=== PATIENT | male | born 1990 | race Caucasian/White ===

== ENCOUNTER → 2017-11-22 | Outpatient (CLI) | payer BC ==
--- NOTE | 2017-11-23 05:26 | SPLIT NIGHT TECHNICIAN REPORT ---
[facility] Split Night Polysomnogram - Loading Dock Hand Report Study date: 11/22/2017 Referring Physician: Dr. Janette Pena M.D. Name: PAOLO VENEGAS Enedina Loading Dock Hand: THI Silver. Date of : 1990 Height: 27 years, Height 6' 0" Sex: Male Weight: 474 lbs Age: 27 Neck Circum: 21.5inches BMI: Medications: 64.28 None Listed Patient History Study started on room air with ETCO2 monitoring in room #8. 27 yr old male here tonight for a possible split psg if AHI>15 after 2 hours. He had 2 failed HST's. He complains of EDS and snoring. He has had weight gain in the past 2 years (130#'s). His ESS=16/24. Neck circ=21.5inches Parameters Monitored NPSG: E1-M2, E2-M1, Fp1-M2, Fp2-M1, F3-M2, F4-M2, F4-M1, C3-M2, C4-M2, C4-M1, O1-M2, O2-M2, O2-M1, T3-M2, T4-M1, P3-M2, P4-M1, CHIN1, CHIN2, HR, EKG, Legs, PFLOW, SNOR, FLOW, CFLOW, Tidal Volume, THOR, ABDO, SpO2, PLTH, CPRESS, ETCO2 Wave, ETCO2, pH SLEEP SUMMARY DATA DIAGNOSTIC TREATMENT Lights Out: 10:08:22 PM 12:21:22 AM Lights On: 12:08:52 AM 5:13:52 AM Total Recording Time (TRT): 120.5 min. 292.0 min. Total Sleep Time (TST): 82.0 min. 281.5 min. NREM Time: 77.5 min. 148.0 min. REM Time: 4.5 min. 133.5 min. Sleep Period Time (SPT): 84.5 min. 287.0 min. Sleep Efficiency (SE): 68 % 96 % Sleep Latency: 36.0 min. 5.5 min. Arousal Index: 7.3 4.0 PAP Treatment Levels: 4, 6, 8, 10, 12, 14, 16 * Optimal Pressure(s) SLEEP STAGING DATA DIAGNOSTIC TREATMENT Duration (min) TST % Duration (min) TST % Stage Wake: 38.5 min. -- 10.5 min. -- WASO: 2.5 min. -- 5.5 min. -- NREM: 77.5 min. 95 % 148.0 min. 53 % Stage N1: 8.0 min. 10 % 10.0 min. 4 % Stage N2: 26.0 min. 32 % 58.5 min. 21 % Stage N3: 43.5 min. 53 % 79.5 min. 28 % REM: 4.5 min. 5 % 133.5 min. 47 % POSITIONAL DATA Event Count Index Event Count Index Supine: 195 143 76 16.2 Supine NREM: 188 145.5 59 23.9 Supine REM: 7 93 17 8 Non-Supine: N/A N/A N/A N/A Non-Supine NREM: N/A N/A N/A N/A Non-Supine REM: N/A N/A N/A N/A AROUSAL SUMMARY DATA: Event Count Index Event Count Index Apnea Arousals: 1 13.9 8 3.8 Hypopnea Arousals: 6 4.4 5 1.1 Snore Arousals: 1 0.7 1 0.2 PLM Arousals: 0 0.0 0 0.0 Non-Specific Arousals: 0 0.0 2 0.4 Total Arousals: 10 7.3 19 4.0 MYOCLONUS (PLM) Event Count Index Event Count Index PLM: 0 0.0 0 0.0 PLM AROUSAL: 0 0.0 0 0.0 PLM W/O AROUSAL 0 0.0 0 0.0 PLM W/RESP EVENT 0 0.0 0 0.0 MYOCLONUS (PLM) Event Count Index Event Count Index LM: 1 9.5 12 2.6 LM AROUSAL: 1 0.7 4 0.9 LM W/O AROUSAL LM W/RESP EVENT LM NON SPECIFIC 6 4.4 5 1.1 HEART RATE DATA DIAGNOSTIC TREATMENT Sleep (bpm): 83 76 REM (bpm): 64 86 NREM (bpm): 79 86 Tachycardia Count: 0 0 Tachycardia Duration: 0.00 0 Bradycardia Count: 0 0 Bradycardia Duration: 0.00 0 DIAGNOSTIC PORTION TREATMENT PORTION RESPIRATORY DATA Event Count Index Event Count Index AHI: -- 142.7 -- 16.2 RDI: -- 142.7 -- 16 Obstructive Apnea: 19 13.9 17 3.6 Central Apnea: 0 0.0 1 0.2 Mixed Apnea: 0 0.0 0 0.0 Hypopnea: 176 128.8 58 12.4 RERA: 0 0.0 0 0.0 Total Apneas: 19 13.9 18 3.8 RESPIRATORY DATA REM NREM SLEEP REM NREM SLEEP Supine Position: Obstructive Apneas: 5 14 19 3 14 17 Central Apneas: 0 0 0 0 1 1 Mixed Apneas: 0 0 0 0 0 0 Hypopneas: 2 174 176 14 44 58 RERA 0 0 0 0 0 0 Total Supine Events: 7 188 195 17 59 76 Supine AHI: 93 145.5 143 8 23.9 16.2 Supine RDI: 93.3 145.5 142.7 7.6 23.9 16.2 REM NREM SLEEP REM NREM SLEEP Non-Supine Position: Obstructive Apneas: N/A N/A N/A N/A N/A N/A Central Apneas: N/A N/A N/A N/A N/A N/A Mixed Apneas: N/A N/A N/A N/A N/A N/A Hypopneas: N/A N/A N/A N/A N/A N/A RERA N/A N/A N/A N/A N/A N/A Total Supine Events: N/A N/A N/A N/A N/A N/A Supine AHI: N/A N/A N/A N/A N/A N/A Supine RDI: N/A N/A N/A N/A N/A N/A OXYGEN DESTAURATION DATA: Event Count Index Event Count Index REM Desaturations: 11 146.7 35 15.7 NREM Desaturations: 214 165.7 95 38.5 SNORE DATA DIAGNOSTIC TREATMENT Snore Time: 11.2 12:26:52 AM Snore TST%: 6 6 Snore Arousal Count: 1 1 Snore Arousal Index: 0.7 0.2 Desaturation Event Summary: Minimum %SpO2 Event Count Mean/Min/Max Duration(sec.) Desaturation Index % Time In Bed > 90 58 22.2 / 4.0 / 58.0 104.7 8.1 86 - 90 101 15.5 / 4.3 / 53.3 27.1 54.9 81 - 85 225 10.8 / 4.0 / 49.5 188.5 17.5 76 - 80 105 10.9 / 4.0 / 54.0 126.4 12.2 71 - 75 25 15.5 / 4.0 / 38.0 82.8 4.4 66 - 70 14 17.0 / 6.5 / 30.5 202.6 1.0 61 - 65 3 16.4 / 7.8 / 22.0 48.6 0.9 56 - 60 2 8.6 / 7.8 / 9.5 45.1 0.7 51 - 55 0 N/A 0.0 0.2 < 50 0 N/A 0.0 0.0 OXYGEN SATURATION DATA DIAGNOSTIC TREATMENT SpO2 Mean Sleep: 78 % 86 % SpO2 Mean REM: 64 % 86 % SpO2 Mean NREM: 79 % 86 % SpO2 Minimum Sleep: 52 % 65 % SpO2 Minimum REM: 54 % 65 % SpO2 Minimum NREM: 52 % 75 % Time Below 90% (TST): 79.4 240.2 Time Below 88% (TST): 76.8 138.7 Total REM NREM Awake <50% 0.0 min. 0.0 min. 0.0 min. 0.0 min. 51 - 60% 3.5 min. 1.6 min. 1.5 min. 0.4 min. 61 - 70% 7.8 min. 3.0 min. 4.8 min. 0.1 min. 71 - 80% 68.0 min. 9.9 min. 58.0 min. 0.1 min. 81 - 90% 295.6 min. 119.2 min. 150.8 min. 25.6 min. 91 - 100% 33.2 min. 4.2 min. 8.7 min. 20.4 min. Average 85 86 84 90 Minimum SpO2 52 54 52 57 Desaturation Event Index 56.1 20.0 82.2 39.2 # Desat. Events below 89% 368 45 305 18 Time(%) with Saturation below 89% 69.8 24.7 42.6 2.5 Time(min.) with Saturation below 89% 285.0 100.6 174.0 10.4 Recording Loading Dock Hand Comments: Mr. Venegas slept in the supine position with the head of his bed slightly elevated. No cardiac arrhythmia or PLM's noted. No bruxism noted. Snoring was noted and scored as a 5 on a scale of 1 through 5. (0=no snoring, 5=snoring loud enough to be heard through a closed door or down the nice way) At 12:21am he had met specific Split-Night criteria during the diagnostic portion of this study. CPAP was initiated at +4 CMH2O and up-titrated to a level of +16 CMH2O. A large Simplus full face mask by [employer] was used during titration. He did not use the restroom during the night. He stated that he slept fair. The final report will be interpreted and signed by a sleep physician. The completed physician report will then be placed in the patient medical record. Therapy Event: Therapy (cm H20) 0 4 6 8 10 12 14 16 Total Time at Pressure (min.) 120.5 13.6 9.0 14.6 17.2 9.4 49.1 178.9 TST at Pressure (min.) 82.0 4.1 9.0 14.6 17.2 9.4 49.1 177.9 # Periods 1 1 1 1 1 1 1 1 Sleep Onset (min.) 36.0 5.5 0.0 0.0 0.0 0.0 0.0 0.0 REM Onset (min.) 107.5 N/A N/A N/A N/A 0.0 0.0 0.0 Sleep Efficiency % 68 30 100 100 100 100 100 99 Wakefulness (%) 32.0 69.8 0.0 0.0 0.0 0.0 0.0 0.6 Wakefulness (min.) 38.5 9.5 0.0 0.0 0.0 0.0 0.0 1.0 NREM 1 (%) 6.6 29.4 38.7 0.0 0.0 0.0 0.0 1.4 NREM 1 (min.) 8.0 4.0 3.5 0.0 0.0 0.0 0.0 2.5 NREM 2 (%) 21.6 0.8 61.3 87.8 0.0 0.0 0.0 22.4 NREM 2 (min.) 26.0 0.1 5.5 12.8 0.0 0.0 0.0 40.0 NREM 3 (%) 36.1 0.0 0.0 12.2 100.0 0.2 0.0 33.8 NREM 3 (min.) 43.5 0.0 0.0 1.8 17.2 0.0 0.0 60.5 REM (%) 3.7 0.0 0.0 0.0 0.0 99.8 100.0 41.9 REM (min.) 4.5 0.0 0.0 0.0 0.0 9.4 49.1 74.9 # Arousals 10 2 10 0 0 0 1 6 Arousal Index 7.3 29.2 66.3 0.0 0.0 0.0 1.2 2.0 # Snore 682 2 90 435 227 12 145 33 Snore Index 499.0 29.2 596.8 1,784.2 791.8 76.3 177.0 11.1 AHI 142.7 131.6 165.8 61.5 31.4 25.4 14.7 0.7 AHI Supine 142.7 131.6 165.8 61.5 31.4 25.4 14.7 0.7 AHI Non-Supine N/A N/A N/A N/A N/A N/A N/A N/A NREM AHI 145.5 131.6 165.8 61.5 31.4 0.0 N/A 0.6 REM AHI 93.3 N/A N/A N/A N/A 25.5 14.7 0.8 RDI 142.7 131.6 165.8 61.5 31.4 25.4 14.7 0.7 # Obstructive 19 1 13 0 0 0 3 0 # Central Ap 0 1 0 0 0 0 0 0 # Mixed 0 0 0 0 0 0 0 0 # Hypopneas 176 7 12 15 9 4 9 2 RERAS 0 0 0 0 0 0 0 0 Total Respiratory Events 195 9 25 15 9 4 12 2 Time Below SpO2 89.00% (min.) 78.2 1.4 6.9 14.5 17.2 9.4 46.3 100.7 Mean NREM SpO2 (%) 79 89 85 80 80 76 N/A 88 Mean REM SpO2 (%) 64 N/A N/A N/A N/A 76 85 88 Mean Sleep SpO2 (%) 78 89 85 80 80 76 85 88 Min NREM SpO2 (%) 52 83 76 75 75 76 N/A 84 Min REM SpO2 (%) 54 N/A N/A N/A N/A 66 65 79 Position Supine (min.) 82.0 4.1 9.0 14.6 17.2 9.4 49.1 177.9 Position Non-supine (min.) 0.0 0.0 0.0 0.0 0.0 0.0 0.0 0.0 LM Index Sleep 9.5 43.9 13.3 0.0 0.0 6.4 1.2 1.7 LM Index NREM 9.3 43.9 13.3 0.0 0.0 0.0 N/A 1.7 LM Index REM 13.3 N/A N/A N/A N/A 6.4 1.2 1.6 Mean Heart Rate (bpm) 83 84 78 89 88 92 77 73 Min Heart Rate (bpm) 60 73 65 68 72 64 59 50
== END | disposition home or self-care (01) ==
LOC: C.NEUR 20:00
PROVIDERS: ATTEND Internal Medicine
DX: G47.33 Obstructive sleep apnea (adult) (pediatric) (principal)